=== PATIENT | male | born 1950 | race Caucasian/White ===

== ENCOUNTER 2018-04-01 05:38 | Inpatient (IN) ==
[2018-03-24 16:27] LABS: Appearance,Urine CLEAR; Bilirubin,Urine NEG (NEG); Color,Urine YELLOW; Glucose,Urine (UA) NEGATIVE (NEG); Leukocyte Esterase,Urine NEG /uL (NEG); Protein,Urine NEG (NEG); Specific Gravity,Urine 1.019 (1.000-1.035); Urine Blood NEG mg/dL (<0.03); Urobilinogen,Urine NEG (NEG)
[2018-03-24 18:01] LABS: Basophils # (Auto) 0 K/mcL (0.0-0.3); Basophils % (Auto) 0.6 % (0.0-2.0); Eosinophils # (Auto) 0.5 K/mcL (0.0-0.7); Eosinophils % (Auto) 6.2 % (0.0-7.0); Granulocytes % (Auto) 68.6 % (38.0-78.0); Lymphocytes # (Auto) 1.2 K/mcL (1.5-4.8); Lymphocytes % (Auto) 15.3 % (15.5-49.0); Mean Cell Volume 91.9 fL (80.0-100.0); Mean Corpuscular HGB Conc 33.9 g/dL (31.0-36.0); Mean Corpuscular Hemoglobin 31.1 pg (26.0-34.0); Monocytes # (Auto) 0.7 K/mcL (0.1-0.9); Monocytes % (Auto) 9.3 % (1.0-12.0); Platelet Count 293 K/mcL (140-440); RBC 4.29 M/mcL (4.50-5.90); Red Cell Distribution Width 13.1 % (11.5-14.5)
[2018-03-24 18:15] LABS: Blood Urea Nitrogen 20 mg/dl (8-23)
[2018-04-01] MEDS ORDERED: PREGABALIN 75 MG CAPSULE PO SCH (07:00)
[2018-04-01] MEDS ORDERED: ACETAMINOPHEN 500 MG TABLET PO SCH (07:00)
[2018-04-01] MEDS ORDERED: CELECOXIB 200 MG CAPSULE PO SCH (07:00)
[2018-04-01] MEDS ORDERED: oxyCODONE 10 MG TAB.ER.12H PO SCH (07:00)
[2018-04-01] MEDS ORDERED: ceFAZolin 1 GM VIAL IV SCH (07:00)
[2018-04-01] MEDS ORDERED: GENTAMICIN SULFATE 800 MG/20 ML VIAL IR ONE (08:47)
[2018-04-01] MEDS ORDERED: PHENYLEPHRINE 10 MG/ML VIAL IV ONE (09:05)
[2018-04-01] MEDS ORDERED: fentaNYL 250 MCG/5 ML VIAL IV ONE (09:05)
[2018-04-01] MEDS ORDERED: MIDAZOLAM 2 MG/2 ML VIAL IV ONE (09:05)
[2018-04-01] MEDS ORDERED: LIDOCAINE HCL/PF 100 MG/5 ML SYRINGE IV ONE (09:05)
[2018-04-01] MEDS ORDERED: SUCCINYLCHOLINE 20 MG/ML ML IV ONE (09:05)
[2018-04-01] MEDS ORDERED: ROPIVACAINE HCL/PF 30 ML VIAL IJ ONE (09:05)
[2018-04-01] MEDS ORDERED: ePHEDrine 50 MG/ML AMPUL IV ONE (09:05)
[2018-04-01] MEDS ORDERED: ONDANSETRON 4 MG/2 ML VIAL IV ONE (09:05)
[2018-04-01] MEDS ORDERED: DEXAMETHASONE 10 MG/ML VIAL IV ONE (09:05)
[2018-04-01] MEDS ORDERED: PROPOFOL 200 MG/20 ML VIAL IV ONE (09:05)
[2018-04-01] MEDS ORDERED: GLYCOPYRROLATE 0.2 MG/ML VIAL IV ONE (09:05)
[2018-04-01] MEDS ORDERED: PROMETHAZINE 25 MG/ML VIAL IV PRN (09:54)
[2018-04-01] MEDS ORDERED: ePHEDrine 50 MG/ML AMPUL IV PRN (09:54)
[2018-04-01] MEDS ORDERED: METOPROLOL TARTRATE 5 MG/5 ML VIAL IV PRN (09:54)
[2018-04-01] MEDS ORDERED: diphenhydrAMINE 50 MG/ML VIAL IV PRN (09:54)
[2018-04-01] MEDS ORDERED: NALOXONE HCL 0.4 MG/ML VIAL IV PRN (09:54)
[2018-04-01] MEDS ORDERED: HYDROmorphone 2 MG/ML VIAL IV PRN ×2 (09:54→10:45)
[2018-04-01] MEDS ORDERED: FLUMAZENIL 0.1 MG/ML ML IV PRN (09:54)
[2018-04-01] MEDS ORDERED: ONDANSETRON 4 MG/2 ML VIAL IV PRN ×2 (09:54→10:45)
[2018-04-01] MEDS ORDERED: IPRATROPIUM/ALBUTEROL 3 ML AMPUL.NEB NEB PRN (09:54)
[2018-04-01] MEDS ORDERED: ATROPINE SULFATE 0.4 MG/ML VIAL IV PRN (09:54)
[2018-04-01] MEDS ORDERED: METHOCARBAMOL 1,000 MG/10 ML VIAL IV PRN (09:54)
[2018-04-01] MEDS ORDERED: LORazepam 2 MG/ML VIAL IV ONE (09:56)
[2018-04-01] MEDS ORDERED: LACTATED RINGERS 1,000 ML IV SCH (10:00)
--- NOTE | 2018-04-01 10:43 | Brief Operative Note ---
Date of procedure: 04/01/18 Pre-op diagnosis: Right shoulder rca abd bicep tendonopathy Post-op diagnosis: same Procedure: right shoulder reverse tsa and bicep tendon repair Grafts/Implants: Yes Anesthesia: GETA Complications: none Surgeon: Aristides Zuluaga Sheet Rock Installer: Stan Berman Estimated blood loss (cc): 100 Specimens Removed/Pathology: none sent Condition: stable Disposition: PACU
[2018-04-01] MEDS ORDERED: POLYETHYLENE GLYCOL 3350 17 GM PACKET PO PRN (10:45)
[2018-04-01] MEDS ORDERED: TEMAZEPAM 15 MG CAPSULE PO PRN (10:45)
[2018-04-01] MEDS ORDERED: ACETAMINOPHEN 325 MG TABLET PO PRN (10:45)
[2018-04-01] MEDS ORDERED: BISACODYL 10 MG SUPP.RECT PR PRN (10:45)
[2018-04-01] MEDS ORDERED: BENZOCAINE/MENTHOL 1 LOZENGE PO PRN (10:45)
[2018-04-01] MEDS ORDERED: MAGNESIUM HYDROXIDE 30 ML ORAL.SUSP PO PRN (10:45)
[2018-04-01] MEDS ORDERED: TRANEXAMIC ACID 1,000 MG/10 ML VIAL IV ONE (10:45)
[2018-04-01] MEDS ORDERED: FLEETS ADULT ENEMA PR PRN (10:45)
[2018-04-01] MEDS ORDERED: ZOLPIDEM 5 MG TABLET PO PRN (10:47)
--- NOTE | 2018-04-01 11:01 | Operative Note ---
DATE OF OPERATION: 04/01/2018 PREOPERATIVE DIAGNOSIS: Right shoulder rotator cuff arthropathy and biceps tendinopathy. POSTOPERATIVE DIAGNOSIS: Right shoulder rotator cuff arthropathy and biceps tendinopathy. PROCEDURE: Right reverse total shoulder with biceps tenodesis using [place] components. SURGEON: Aristides Zuluaga MD AD SETTER: Stan Berman PA-C ANESTHESIA: General LMA anesthesia. COMPLICATIONS: None. ESTIMATED BLOOD LOSS: About 100 mL IMPLANTS: A size 11 humeral stem with a small amount of cement which was a cementless stem, standard thickness poly with a 36 mm eccentric head, 2 mm of offset, 2 mm of the eccentricity and a standard baseplate metaglene with screws per nurse's note. Central screw was 28 mm centrally. DESCRIPTION OF PROCEDURE: The patient was brought to the operating room and put to sleep with general LMA anesthesia. Once asleep, the patient's right arm was sterilely prepped and draped and confirmed as the operative site. I[place]an was placed over the skin. Preop antibiotics were given. Tranexamic acid was given. We made a deltopectoral approach and exposed the shoulder, released the remnants of the subscap, which had substantial tears. There was obvious instability of the bicep tendon which was released at this point. We placed a stitch in this x2 into the pec major and roughened the bone. We then removed the proximal portion of the biceps and dislocated the humerus. ____ was performed around the glenoid 360 degrees as well as the inferior capsule was released from the humerus. We made our cut on the humerus with a standard guide for Jared at 20 degrees retroversion. Once the bone was removed, a protective plate was placed and subluxed the head posteriorly. We then reamed the central portion of the glenoid up to size 40. The 36 seemed to fit the most appropriately and this was positioned. This was a 36 mm standard glenosphere with a central screw 28 mm. Two 28 mm screws and one 16 superiorly were used to compress the metaglene and lock it into place. Once the metaglene was secured and the bleeding surface of the glenoid was brought up to about the 50% portion of the glenoid, we then irrigated thoroughly. We then placed a humeral head and then prepared the stem. The stem was broached up to size 11. Once this was done, we then trialed the size 11 and a standard poly. This fit very nicely, tension with 1 mm play with a shuck test. The patient tolerated this well. We then placed the actual implant which was a size 11 stem with a small amount of cement on the distal portion to help early fixation. Once this was put into place we then placed the standard poly and the modular head component. This was tapped into place. We irrigated thoroughly and reduced the shoulder. This was very stable throughout the arc of motion without instability. We then thoroughly irrigated the shoulder and placed the two stitches in the biceps tendon. The patient tolerated this well without complication, the biceps tenodesis performed to the pec major. Blood loss was about 100 mL. RBH:cristian Job ID: [id number] Doc ID: [id number] Aristides Zuluaga MD
[2018-04-01] MEDS: fentaNYL 100 MCG/2 ML VIAL IV PRN ×2 (11:17→11:21)
--- NOTE | 2018-04-01 11:28 | XRay Report ---
HISTORY: Postop shoulder replacement FINDINGS: There is a well-positioned reverse shoulder prosthesis. No fractures present. The distal in the clavicle has been resected. There is streaky infiltrate in the right lower lobe along with a small right-sided pleural effusion. IMPRESSION: Well-positioned right shoulder prosthesis. Mild right lower lobe infiltrate with a small pleural effusion Interpreted and Authenticated by: Roberto Carlos Zarate 04/01/18
[2018-04-01] MEDS: KETOROLAC 15 MG/ML VIAL IV PRN ×2 (12:09→18:40)
[2018-04-01] MEDS: 0.45 % SODIUM CHLORIDE 1,000 ML IV SCH ×2 (12:12→20:30)
[2018-04-01] MEDS: 0.9 % SODIUM CHLORIDE 10 ML SYRINGE IV SCH ×2 (13:55→21:30)
[2018-04-01] MEDS: HYDROcodone/APAP 10/325MG TABLET PO PRN ×5 (14:04→22:36)
--- NOTE | 2018-04-01 16:44 | Discharge Summary ---
Ortho Discharge - TSA - Patient Instructions Diet: Regular Diet Activity: activity as tolerated, weight bearing as tolerated Total Shoulder Protocol: Leave immobilizer in place except for bathing and ROM. Abduction pillow. Continue to wear sling until seen by physician. [place] Pendulum : These exercises use momentum produced by your body to move your shoulder joint. Bend your knees and shift your weight to your front leg, then back, allowing your arm to swing in the same directions. Using the same technique, alternately shift your weight between your right and left legs, allowing your arm to swing from side to side. These exercises are also performed in counterclockwise and clockwise circular motions. Typically these exercises are performed several times per day, for a set number repetitions or minutes, such as 20 times in a row or 5 minutes at a time. Dressing Care: May shower in 2 days - Follow Up Plan Follow Up Appointments: Stan Berman PA-C [Physician Product Controller] - 04/14/18 10:40 am Disposition: Home, Self-Care Prognosis: Good Rehab Potential: Good I certify that the patient requires SNF services: No Overall status at discharge: patient is progressing back to baseline - Orders For Discharge Prescriptions: Docusate Sodium [Colace] 100 mg PO BID #60 capsule HYDROcodone/APAP 10/325MG [[place]ury 10-325Mg] 1 - 2 tab PO Q4HP PRN #75 tablet PRN Reason: Pain Level 3-6
[2018-04-01] MEDS: DOCUSATE SODIUM 100 MG CAPSULE PO SCH (20:33)
[2018-04-01] MEDS: METOPROLOL TARTRATE 50 MG TABLET PO SCH (20:33)
[2018-04-01] MEDS: LISINOPRIL 5 MG TABLET PO SCH (20:33)
[2018-04-01] MEDS ORDERED: SIMVASTATIN 40 MG TABLET PO SCH (21:00)
[2018-04-01] MEDS ORDERED: SENNOSIDES 1 TABLET PO SCH (21:00)
[2018-04-01] MEDS ORDERED: MIRTAZAPINE 15 MG TABLET PO SCH (21:00)
[2018-04-02] MEDS: ceFAZolin 1 GM VIAL ONE ×2 (00:10→00:16)
[2018-04-02] MEDS: ceFAZolin 1 GM VIAL IV SCH ×2 (00:10→07:33)
[2018-04-02] MEDS: HYDROcodone/APAP 10/325MG TABLET PO PRN ×5 (01:04→09:29)
[2018-04-02] MEDS: 0.9 % SODIUM CHLORIDE 10 ML SYRINGE IV SCH (06:24)
[2018-04-02] MEDS: 0.45 % SODIUM CHLORIDE 1,000 ML IV SCH (07:11)
[2018-04-02] MEDS: METOPROLOL TARTRATE 50 MG TABLET PO SCH (08:24)
[2018-04-02] MEDS: DOCUSATE SODIUM 100 MG CAPSULE PO SCH (08:24)
[2018-04-02] MEDS: LISINOPRIL 5 MG TABLET PO SCH (08:24)
[2018-04-02] MEDS ORDERED: amLODIPine 5 MG TABLET PO SCH (09:00)
[2018-04-02] MEDS ORDERED: VITAMIN B COMPLEX 1 CAPSULE PO SCH (09:00)
[2018-04-02] MEDS ORDERED: ASPIRIN 81 MG TAB.CHEW PO SCH (09:00)
[2018-04-02] MEDS ORDERED: VITAMIN D3 1,000 UNIT TABLET PO SCH (09:00)
== END 2018-04-02 10:50 | disposition home or self-care (01) | DRG 483 ==
LOC: MEDSUR 05:38
PROVIDERS: ADMIT Orthopaedic Surgery; ATTEND Orthopaedic Surgery
CPT/HCPCS: 97161